=== PATIENT | male | born 1985 | race Caucasian/White ===

== ENCOUNTER 2016-11-15 16:53 | Emergency (ER) | payer OTHER ==
[2016-11-15] MEDS ORDERED: ONDANSETRON HCL INJ/PF 4 MG/2 ML SDV IV ONE (17:45)
[2016-11-15] MEDS ORDERED: FENTANYL CITRATE INJ/PF 100 MCG/2 ML AMPUL IV ONE (17:45)
[2016-11-15] MEDS ORDERED: KETAMINE HCL INJ 500 MG/10 ML VIAL IV ONE (17:59)
[2016-11-15] MEDS ORDERED: PROPOFOL INJ 200 MG/20 ML VIAL IV ONE (17:59)
--- NOTE | 2016-11-15 18:05 | RADIOLOGY REPORT (SQ) ---
EXAM DESCRIPTION: SHOULDER RIGHT 1 VIEW COMPLETED DATE/TIME: 11/15/2016 5:56 pm REASON FOR STUDY: OBVIOUS DEFORMITY; DISLOCATION COMPARISON: None. NUMBER OF VIEWS: One view TECHNIQUE: Portable Y-view images acquired of the right shoulder. LIMITATIONS: None. FINDINGS: MINERALIZATION: Normal. BONES: No acute fracture is seen. JOINTS: There is an anterior dislocation of the right humerus. VISUALIZED LUNGS AND RIBS: No pneumothorax. No rib fracture. SOFT TISSUES: No radiopaque foreign body. OTHER: No other significant finding. IMPRESSION: Anterior dislocation as noted above. TECHNICAL DOCUMENTATION: JOB ID: [id number] [employer]- All Rights Reserved
--- NOTE | 2016-11-15 19:10 | RADIOLOGY REPORT (SQ) ---
EXAM DESCRIPTION: SHOULDER RIGHT 1 VIEW COMPLETED DATE/TIME: 11/15/2016 6:57 pm REASON FOR STUDY: right shoulder POST manipulation COMPARISON: 11/15/2016 TECHNIQUE: Portable AP view of the right shoulder LIMITATIONS: None. FINDINGS: There has been interval reduction of the previously described shoulder dislocation. IMPRESSION: Interval reduction as noted above TECHNICAL DOCUMENTATION: JOB ID: [id number] [employer]- All Rights Reserved
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
[2016-11-15 20:14] VITALS: BP 132/82
== END 2016-11-15 20:15 | disposition home or self-care (01) ==
LOC: ER 16:53
PROC: 0RSJXZZ Reposition Right Shoulder Joint, External Approach (ICD-10-PCS; principal; 2016-11-15)
DX: M24.411 Recurrent dislocation, right shoulder (principal); F43.10 Post-traumatic stress disorder, unspecified
CPT/HCPCS: 23650; 99283; 99152; 96374; 73020; J3010; J3490; J2405; J2704